=== PATIENT | female | born 1955 | race Caucasian/White ===

== ENCOUNTER → 2017-12-15 | Day surgery (SDC) | payer OTHER ==
[~2017-12-15] VITALS: Ht 170.2 cm; Wt 100.3 kg
[~2017-12-15] MED LIST: *PROMETHAZINE 25 MG/ML VIAL PERIprocedural use ONLY ONE; ACETAMINOPHEN 1000 MG/100 ML 100 ML IV SCH; BUPIVACAINE/EPINEPHRINE 0.5% PF 10 ML VIAL ONE; CHLORHEXIDINE GLUCONATE 2 % 1 PACK (2 CLOTHS) TOPICAL PRN; DEXAMETHASONE SOD PHOS 4 MG/ML VIAL IV ONE; DO NOT ADM ANY ANTICOAGULANT DRUGS PRN; FAMO1TAB PO; GLYCOPYRROLATE 1 MG/5 ML SYRINGE IV PUSH ONE; IBUP200T47 PO; KETOROLAC TROMETHAMINE 30 MG/ML (IVP) VIAL IV PUSH ONE; LACTATED RINGER'S 1000 ML IV PRN; LIDOCAINE HCL 1% PF 5 ML SYRINGE OTHER ONE; LISI10TA3 PO; METOPROLOL TARTRATE 25 MG TAB PO PRN; MIDAZOLAM HCL 2 MG/2 ML VIAL ONE; MORPHINE SULFATE 4 MG/ML INJ IV PUSH PRN; NEOSTIGMINE 5 MG/5 ML SYRINGE IV PUSH ONE; ONDANSETRON HCL 4 MG/2 ML VIAL IV ONE; ONDANSETRON ODT 4 MG TAB PO PRN; PHENYLEPH/NS 1000 MCG/10 ML SYR IV ONE; POVIDONE IODINE 5% (ANTISEPSIS KIT) 4 APPLICATIONS EACH NARE PRN; PROPOFOL 200 MG/20 ML AMP IV ONE; ROCURONIUM INJ 50 MG/5 ML SYRINGE IV PUSH ONE; SODIUM CHLORID 0.9% 500 ML IV PRN; SODIUM CHLORIDE 0.9% FLUSH 10 ML FLUSH IV FLUSH PRN; SODIUM CHLORIDE 0.9% FLUSH 10 ML FLUSH IV FLUSH SCH; ceFAZolin 2 GM PREMIX 50 ML IV SCH; ceFAZolin 2 GM PREMIX 50 ML ONE; oxyCODONE/ACETAMINOPHEN 5 MG/325 MG TAB PO PRN
--- NOTE | 2017-12-15 16:04 | RADRPT ---
EXAM DATE: 12/15/2017 4:02 PM EDT AGE/SEX: 62 years / Female INDICATIONS: Chest pain post gallbladder surgery. CLINICAL DATA: This is the patient's initial encounter. Patient reports that signs and symptoms have been present for 1 day and indicates a pain score of 5/10. MEDICAL/SURGICAL HISTORY: Hypertension. Hysterectomy. COMPARISON: No prior exams available for comparison. FINDINGS: A single AP view of the chest demonstrates the lungs to be symmetrically aerated without evidence of mass, infiltrate or effusion. The cardiomediastinal contours are unremarkable. Osseous structures a re intact. CONCLUSION: 1. No acute cardiopulmonary disease. Electronically signed by: Primitivo Ni MD 12/15/2017 4:03 PM EDT
--- NOTE | 2017-12-15 16:17 | MP ---
cc: Yandel Reyna MD DATE OF OPERATION: 12/15/2017 PREOPERATIVE DIAGNOSES: Chronic cholecystitis, cholelithiasis. POSTOPERATIVE DIAGNOSES: Chronic cholecystitis, cholelithiasis. PROCEDURE PERFORMED: Laparoscopic cholecystectomy. SURGEON: Yandel Reyna MD FOUNDATION DIRECTOR: Damaris Collier [id number] ANESTHESIA: General endotracheal. OPERATIVE FINDINGS: The patient was found to have a moderately thick-walled gallbladder with no adhesions to it. There was a large stone within the lumen. The cystic duct and the common bile duct were seen to be of normal caliber. DESCRIPTION OF PROCEDURE: The patient was brought to the operating room, and after satisfactory general endotracheal anesthesia was obtained, the abdomen was prepped and draped in the usual sterile fashion. Marcaine 0.5% with epinephrine was used to infiltrate the skin for local anesthesia. A small incision was made above the umbilicus and a 5 mm trocar was inserted into the peritoneal cavity under direct visualization. The abdomen was then distended to 15 mmHg using carbon dioxide. after which the camera was reinserted and visceral injury inspected for, with none being identified. Under direct visualization, a 12 port and a 5 port were placed in the upper midline. The fundus of the gallbladder was grasped and retracted superiorly over the right lobe of the liver. Job's pouch was then grasped and retracted inferiorly and laterally, placing tension on the hepatoduodenal ligament. The cystic duct and cystic artery were both dissected free bluntly to obtain the critical view. Once the critical view had been obtained, the cystic artery was divided near its junction with the gallbladder using the Harmonic scalpel. The cystic duct was then likewise divided near its junction with the gallbladder, again using the Harmonic scalpel. Both vessels were checked and found to be intact. The gallbladder was then dissected free from the liver bed using the Harmonic scalpel. It was placed within an EndoCatch bag and brought through the upper midline incision without problem where the large stone was noted. The gallbladder was passed for permanent pathology. The trocar was reinserted and the liver bed inspected and found to be hemostatic. The cystic duct and the cystic artery stumps were both inspected and found to be intact with no leakage of bile or blood. The carbon dioxide was vented as completely as possible into the atmospheres, after which the ports were removed and the 12 mm fascial defect closed with a single suture of 0 Vicryl. The subcutaneous tissue and skin were closed with interrupted 4-0 PDS subcuticular stitches. Steri-Strips were applied. The patient was then awakened and taken from the operating room, in satisfactory condition, having tolerated the procedure without problem. Estimated blood loss was less than 10 mL. The instrument, sponge, and needle counts were reported as being correct x 2 at the end of the procedure. MD DIANA Lindquist/GERALD , 04:00 PM , 04:15 PM
[2017-12-15 16:51] VITALS: BP 153/90; PULSE 74; RESP 20; TEMP 98; O2SAT 96
--- NOTE | 2017-12-16 07:36 | EKG ---
Date Performed: 12/15/2017 Time Performed: 15:58:10 PTAGE: 62 years EKG: SINUS BRADYCARDIA BORDERLINE ECG NO PREVIOUS TRACING DOCTOR: Ravinder Do Interpretating Date/Time 12/16/2017 07:32:05
== END | disposition home or self-care (01) ==
LOC: HSDC 10:39
PROVIDERS: ATTEND Surgery
DX: K80.10 Calculus of gallbladder with chronic cholecystitis without obstruction (principal); R07.9 Chest pain, unspecified; E66.9 Obesity, unspecified; I10 Essential (primary) hypertension; F41.9 Anxiety disorder, unspecified; Z90.710 Acquired absence of both cervix and uterus; Z68.34 Body mass index [BMI] 34.0-34.9, adult
CPT/HCPCS: 00790; 47562; 71045; 88304; 93005; J0131; J0690; J1100; J1885; J2250; J2370; J2405; J2550; J2710; J3010; J7120